=== PATIENT | female | born 1960 | race Caucasian/White ===

== ENCOUNTER 2024-12-28 18:39 | Emergency (ER) | payer MEDICARE ==
[2024-12-28] MEDS ORDERED: Naproxen 500 MG TAB ONE (19:08)
[2024-12-28] MEDS ORDERED: Bacitracin 1 PK ONE (19:29)
[2024-12-28] MEDS ORDERED: Lidocaine 1% PF 5 ML VIAL ONE (19:29)
[2024-12-28] MEDS ORDERED: Clindamycin 150 MG CAP ONE (20:29)
== END 2024-12-28 21:54 | disposition home or self-care (01) ==
LOC: MADERS 18:39
DX: Z89.022 Acquired absence of left finger(s) (principal); I10 Essential (primary) hypertension; Z79.899 Other long term (current) drug therapy; Z95.0 Presence of cardiac pacemaker
CPT/HCPCS: 73140; J2270; 96372; 99283